=== PATIENT | female | born 1955 | race Caucasian/White ===

== ENCOUNTER → 2023-07-13 13:28 | Outpatient (REF) | payer OTHER, SELFPAY ==
[2023-07-13 14:18] LABS: % Basophils 0.5 % (0-2); % Eosinophils 1.4 % (0-6); % Immature Granulocytes 0.2 % (0-0.5); % Lymphocytes 32.1 % (20.5-51.1); % Monocytes 5.6 % (1.7-9.3); % Neutrophils 60.2 % (42.2-75.2); Absolute Eosinophils 0.1 10^3/uL (0-0.7); Absolute Lymphocytes 1.9 10^3/uL (1.2-3.4); Absolute Monocytes 0.3 10^3/uL (0.1-0.6); Absolute Neutrophils 3.6 10^3/uL (1.4-6.5); Hematocrit 37.3 % (37.0-47.0); Hemoglobin 12.5 g/dL (12.0-16.0); Mean Corp Hgb Conc. 33.5 g/dL (33.0-37.0); Mean Corpuscular Hgb 31.6 pg (27.0-31.0); Mean Corpuscular Volume 94.2 fL (81.0-99.0); Mean Platelet Volume 10.2 fL (7.4-10.4); Nucleated Red Blood Cells % 0 %; Platelet Count 250 10^3/uL (130-400); Red Blood Cell Count 3.96 10^6/uL (4.20-5.40); Red Cell Dist. Width 12.6 % (11.5-14.5); White Blood Cell Count 5.9 10^3/uL (4.8-10.8)
[2023-07-13 15:16] LABS: ALT (SGPT) 24 U/L (0-35); AST (SGOT) 28 U/L (14-36); Albumin 4.2 g/dl (3.5-5.0); Alkaline Phosphatase 130 U/L (38-126); Blood Urea Nitrogen 18 mg/dl (7-17); Calcium 9.9 mg/dl (8.4-10.2); Carbon Dioxide 31 mmol/L (22-30); Chloride 103 mmol/L (98-107); Glucose 95 mg/dl (70-99); Potassium 3.9 mmol/L (3.5-5.1); Sodium 139 mmol/L (135-145); Total Bilirubin 0.4 mg/dl (0.2-1.3); Total Protein 7.3 g/dl (6.3-8.2); eGFR > 60.00
== END ==
LOC: REG 13:28
PROVIDERS: ATTENDING PHYSICIAN Internal Medicine Cardiovascular Disease; FAMILY PHYSICIAN Nurse Practitioner
DX: R06.09 Other forms of dyspnea (principal); R94.31 Abnormal electrocardiogram [ECG] [EKG]
CPT/HCPCS: 36415; 71046; 80053; 85025

== ENCOUNTER 2023-07-15 11:44 | Day surgery (SDC) | payer OTHER, SELFPAY ==
[2023-07-15] VITALS (8 sets, daily range): BP systolic 121–133; BP diastolic 65–96; BMI 22.3
[2023-07-15] MEDS: NSS 182 ML IV (12:52)
--- NOTE | 2023-07-15 15:30 | ITS.CL.CATH ---
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
Cardiac Catheterization
Procedure Report:
CARDIAC CATHETERIZATION REPORT
Date of Procedure: 07/15/2023
Referring: Adrian Lindquist M.D.
Indication: Shortness of breath/dyspnea on exertion, abnormal stress test.
PROCEDURE:
1. Right heart catheterization.
2. Left heart catheterization.
3. Coronary angiography.
ACCESS:
6 [place] right radial artery.
Failed 5 [place] right antecubital vein.
5 [place] right common femoral vein using a modified Seldinger technique with a micropuncture kit under ultrasound guidance.
CATHETERS:
1. 5 [place] balloon wedge.
2. 5 [place] JL 3.5.
3. 5 [place] JR4.
HEMODYNAMIC DATA
Weight (kg): 60.7
AO (s/d/x mmHg): 151/77/108
LV (s/x mmHg): 153/16
PCWP (a/v/x mmHg): /16
PA (s/d/x mmHg): 33/17/22
RV (s/x mmHg): 33/7
RA (a/v/x mmHg):
SVC SvO2 (%): 76.1
PA SvO2 (%): 75.5
SaO2 (%): 97.3
Hbg (g/dL): 11.7
CO (L/min): 4.98
CI (L/min/m2): 2.99
TPG (mmHg): 6
PVR ([place]ay[place] Units): 1.20
SVR (dynes*seconds*cm^-5): 1606
AVO2 Diff (Volume %): 3.46
AV gradient (x, mmHg): None.
AV area (cm2): Normal.
LEFT VENTRICULOGRAPHY: Not performed.
CORONARY ANGIOGRAPHY
Dominance: Right.
Left Main: Normal size, trifurcating vessel. There is no coronary artery disease.
LAD: Normal size vessel giving rise to 1 small diagonal. There is a smooth, 10% lesion in the ostium of the LAD. There is mild to moderate tortuosity in the mid vessel.
Ramus: Normal size vessel supplying the majority of the lateral wall. There is no coronary artery disease.
Circumflex: Small size, vestigial vessel riding in the AV groove. There is no coronary artery disease.
RCA: Normal size, dominant vessel. There is no coronary artery disease.
INTERVENTIONS
None.
Closure Device: Vascular band for the right radial artery, manual pressure for the right antecubital fossa and right common femoral vein.
Radiation dose (mGy): 148.85
DAP (cm2.Gy): 10.4465
Fluoroscopy time (minutes): 4.0
Sedation time (minutes): 10
CONCLUSIONS:
1. Right dominant circulation with a smooth, 10% lesion in the ostium of the LAD. No meaningful coronary artery disease.
2. Top normal to mildly elevated filling pressures (LVEDP = 16 mmHg, PCWP = 16 mmHg at 60.7 kg).
3. Mild postcapillary pulmonary hypertension, WHO group 2.
RECOMMENDATIONS:
1. Expectant management after cardiac catheterization via right radial/antecubital/femoral approach.
2. Limited weight bearing on the right wrist for one week.
3. No obvious source of symptoms from a cardiovascular standpoint.
4. Stable for outpatient follow-up.
Copy to: Adrian Lindquist M.D., Omid Canales M.D.
Omid Ponce, DO, FACC, FACP
[2023-07-15] MEDS: NSS 1000 IV (15:59)
[2023-07-15] MEDS: TYLENOL 650 MG PO (16:00)
== END 2023-07-15 18:33 | disposition home or self-care (01) ==
LOC: CATH 11:44
PROVIDERS: ATTENDING PHYSICIAN Internal Medicine Cardiovascular Disease; FAMILY PHYSICIAN Nurse Practitioner
DX: I27.29 Other secondary pulmonary hypertension (principal); R94.39 Abnormal result of other cardiovascular function study; I27.22 Pulmonary hypertension due to left heart disease; R06.09 Other forms of dyspnea; R06.02 Shortness of breath; I25.10 Atherosclerotic heart disease of native coronary artery without angina pectoris; E78.00 Pure hypercholesterolemia, unspecified
CPT/HCPCS: 93460; C1769; C1894; Q9967